=== PATIENT | female | born 1975 | race Caucasian/White ===

== ENCOUNTER 2018-12-03 12:26 | Inpatient (IN) | payer MEDICARE ==
[~2018-12-03] VITALS: Ht 165.1 cm; Wt 76.4 kg
[2018-12-03] MEDS ORDERED: EFFEXOR100 MG PO (12:38)
[2018-12-03] MEDS ORDERED: NEURONTIN 300300 MG PO (12:39)
[2018-12-03] MEDS ORDERED: VITAMIN B-121000 MCG PO (12:39)
[2018-12-03] MEDS ORDERED: VITAMIN D250000 UNIT PO (12:39)
[2018-12-03] MEDS ORDERED: IBUPROFEN600 MG PO (12:39)
[2018-12-03 15:00] LABS: BASOPHILS 0.2 % (0-2); EOSINOPHILS 0.8 % (0-7); HEMATOCRIT 36.9 % (36.0-48.0); HEMOGLOBIN 12.6 g/dL (12-16); IMMATURE GRANULOCYTES 0.3 % (0-5); LYMPHOCYTES 28.1 % (15-50); MCHC 34.1 g/dL (31.0-37.0); MCV 90.9 fL (80.0-100.0); MEAN PLATELET VOLUME 8.8 fL (7.4-10.4); MONOCYTES 9.9 % (2-11); NEUTROPHILS 60.7 % (40-80); PLATELET COUNT 437 10x3/uL (130-400); RBC 4.06 10x6/uL (4.00-5.40); RDW 14.1 % (11.5-14.5); WBC 9.1 10x3/uL (4.8-10.8)
[2018-12-03 15:04] VITALS: BP 162/76
--- NOTE | 2018-12-03 15:06 | NUR ---
PT STABLE, CALL LIGHT WITHIN REACH, DENIES NEEDS, WILL CONTINUE TO MONITOR.
[2018-12-03 15:18] LABS: ALBUMIN 3.6 g/dL (3.4-5.0); ALKALINE PHOSPHATASE 90 U/L (46-116); ALT (SGPT) 18 U/L (10-68); BILIRUBIN - TOTAL 0.32 mg/dL (0.2-1.3); CALC OSMOLALITY 279 mosm/kg (275-300); CALCIUM 8.7 mg/dL (8.5-10.1); CARBON DIOXIDE 27.9 mmol/L (21.0-32.0); CHLORIDE - SERUM 104 mmol/L (98-107); CREATININE - SERUM 0.7 mg/dL (0.6-1.3); GLUCOSE 92 mg/dL (74-106); PROTEIN - SERUM 7.6 g/dL (6.4-8.2); SODIUM 141 mmol/L (136-145); UREA NITROGEN 9 mg/dL (7-18); eGFR NON AFRICAN AMERICAN > 90 mL/min (90-120)
--- NOTE | 2018-12-03 16:24 | NUR ---
PT GONE FOR SCANS AT THIS TIME. PT STABLE AT THIS TIME.
--- NOTE | 2018-12-03 17:16 | NUR ---
PT STABLE, CALL LIGHT WITHIN REACH, DENIES NEEDS, WILL CONTINUE TO MONITOR. PT GOING TO CT AT THIS TIME.
--- NOTE | 2018-12-03 18:10 | NUR ---
PT STABLE, CALL LIGHT WITHIN REACH, ASKING ABOUT DINNER TRAY. WILL CONTINUE TO MONITOR.
[2018-12-03 18:24] VITALS: BP 159/70
--- NOTE | 2018-12-03 18:52 | NUR ---
NURSE COMING ON WILL CALL BACK FOR REPORT.
--- NOTE | 2018-12-03 19:14 | NUR ---
SANDWICH AND DRINK PROVIDED, PT STABLE, CALL LIGHT WITHIN REACH, COLD PACK PROVIDED PER PT REQUEST. WILL CONTINUE TO MONITOR.
[2018-12-03 20:02] VITALS: BP 155/78
--- NOTE | 2018-12-03 20:03 | NUR ---
PT REPORT CALLED TO [facility], NURSE ROOM [id number]. PT STABLE AT THIS TIME.
[2018-12-03 21:28] VITALS: BP 144/66
[2018-12-04 00:29] VITALS: BP 155/59
[2018-12-04 03:03] VITALS: BP 144/66; Ht 165.1 cm; Wt 76.4 kg
--- NOTE | 2018-12-04 03:30 | NUR ---
RIGHT FOREARM IV NO LONGER PATENT. REMOVED CATHETER INTACT. RESITED 22 G TO SUPERIOR RIGHT FOREARM 1ST ATTEMPT. APPLIED HEAT PACKS TO RIGHT FACIAL ABSCESS. STARTING TO DRAIN. JUST RECEIVED GENTAMICIN FROM CLOTH FINISHING RANGE OPERATOR, NOW INFUSING. PERCOCET AND DILAUDID GIVEN ALTERNATELY FOR PAIN. PAIN IS BETTER CONTROLLED NOW. WILL CONTINUE TO MONITOR.
[2018-12-04 05:26] VITALS: BP 147/70
[2018-12-04 06:32] LABS: BASOPHILS 0.2 % (0-2); EOSINOPHILS 0.1 % (0-7); HEMATOCRIT 35.8 % (36.0-48.0); HEMOGLOBIN 12.1 g/dL (12-16); IMMATURE GRANULOCYTES 0.5 % (0-5); LYMPHOCYTES 11.1 % (15-50); MCH 31.1 pg (26.0-34.0); MCHC 33.8 g/dL (31.0-37.0); MEAN PLATELET VOLUME 9.1 fL (7.4-10.4); MONOCYTES 2.4 % (2-11); NEUTROPHILS 85.7 % (40-80); PLATELET COUNT 430 10x3/uL (130-400); RBC 3.89 10x6/uL (4.00-5.40); RDW 14.1 % (11.5-14.5); WBC 8.4 10x3/uL (4.8-10.8)
[2018-12-04 06:47] LABS: CALC OSMOLALITY 277 mosm/kg (275-300); CALCIUM 8.8 mg/dL (8.5-10.1); CHLORIDE - SERUM 102 mmol/L (98-107); CREATININE - SERUM 0.7 mg/dL (0.6-1.3); GLUCOSE 114 mg/dL (74-106); POTASSIUM - SERUM 3.4 mmol/L (3.5-5.1); SODIUM 139 mmol/L (136-145); UREA NITROGEN 9 mg/dL (7-18); eGFR NON AFRICAN AMERICAN > 90 mL/min (90-120)
[2018-12-04 09:09] VITALS: BP 167/82
--- NOTE | 2018-12-04 11:03 | NUR ---
PT ALERT X 4. BREATH SOUNDS CLEAR BILAT. IV TO RIGHT WRIST, PATENT, DRESSING CLEAN DRY AND INTACT. BOWEL SOUNDS HYPOACTIVE TO ALL ELIZALDE. ABSCESS TO RIGHT JAW. PAIN OF 8/10, MEDICATED PER ORDERS, WILL MONITOR. PT TEARFUL AND ANXIOUS. BED LOW, CALL LIGHT IN REACH, NO OTHER NEEDS AT THIS TIME.
[2018-12-04 13:15] VITALS: BP 133/77
[2018-12-04 20:53] VITALS: BP 143/82
[2018-12-05 00:50] VITALS: BP 156/88
[2018-12-05 05:02] VITALS: BP 152/80
[2018-12-05 07:35] LABS: BASOPHILS 0.1 % (0-2); EOSINOPHILS 0 % (0-7); HEMATOCRIT 33.8 % (36.0-48.0); HEMOGLOBIN 11.2 g/dL (12-16); IMMATURE GRANULOCYTES 0.3 % (0-5); MCHC 33.1 g/dL (31.0-37.0); MCV 93.6 fL (80.0-100.0); MONOCYTES 13.5 % (2-11); NEUTROPHILS 68.1 % (40-80); PLATELET COUNT 440 10x3/uL (130-400); RBC 3.61 10x6/uL (4.00-5.40); RDW 14.2 % (11.5-14.5)
[2018-12-05 08:00] VITALS: BP 167/82
[2018-12-05 08:00] LABS: CALCIUM 8.8 mg/dL (8.5-10.1); CARBON DIOXIDE 26.4 mmol/L (21.0-32.0); CHLORIDE - SERUM 103 mmol/L (98-107); CREATININE - SERUM 0.8 mg/dL (0.6-1.3); GLUCOSE 105 mg/dL (74-106); SODIUM 141 mmol/L (136-145); eGFR NON AFRICAN AMERICAN 82 mL/min (90-120)
[2018-12-05 08:04] LABS: CALC OSMOLALITY 280 mosm/kg (275-300); POTASSIUM - SERUM 3.6 mmol/L (3.5-5.1); UREA NITROGEN 13 mg/dL (7-18)
--- NOTE | 2018-12-05 08:22 | NUR ---
PT ALERT X 4. BREATH SOUNDS CLEAR BILAT. IV TO LEFT FOREARM, PATENT, DRESSING CLEAN DRY AND INTACT. EAR AND JAW SLIGHTLY SWOLLEN, OPEN AND DRAINING, PT APPLYING HEAT NEEDED. PAIN OF 4/10, WILL MONITOR. BREAKFAST IN ROOM, BED LOW, CALL LIGHT IN REACH, NO OTHER NEEDS AT THIS TIME.
[2018-12-05 12:00] VITALS: BP 161/96
--- NOTE | 2018-12-05 20:00 | NUR ---
PT DID NOT RECEIVE VANCOMYCIN THAT WAS HUNG AT 181. PT WAS SALINE LOCKED AND IV LEAKED ALL OVER FLOOR. WASTED IN PYXIS AND CREDITED PT. HUNG ANOTHER VANC AT 1999. RETIMING VANC IVPB.
[2018-12-05 21:02] VITALS: BP 176/99
[2018-12-06 00:43] VITALS: BP 167/89
[2018-12-06 05:00] VITALS: BP 112/55
[2018-12-06 05:42] LABS: BASOPHILS 0.3 % (0-2); EOSINOPHILS 1.1 % (0-7); HEMATOCRIT 33.8 % (36.0-48.0); HEMOGLOBIN 11.1 g/dL (12-16); IMMATURE GRANULOCYTES 0.3 % (0-5); MCH 30.7 pg (26.0-34.0); MCHC 32.8 g/dL (31.0-37.0); MCV 93.4 fL (80.0-100.0); MEAN PLATELET VOLUME 8.7 fL (7.4-10.4); MONOCYTES 18.8 % (2-11); NEUTROPHILS 53.5 % (40-80); PLATELET COUNT 414 10x3/uL (130-400); RBC 3.62 10x6/uL (4.00-5.40)
[2018-12-06 05:54] LABS: WBC 7.4 10x3/uL (4.8-10.8)
[2018-12-06 05:57] LABS: ANION GAP 11.7 mmol/L (8-16); CALCIUM 7.5 mg/dL (8.5-10.1); CARBON DIOXIDE 27.2 mmol/L (21.0-32.0); CREATININE - SERUM 0.9 mg/dL (0.6-1.3)
[2018-12-06 06:04] LABS: POTASSIUM - SERUM 2.9 mmol/L (3.5-5.1)
[2018-12-06 08:09] VITALS: BP 128/88
--- NOTE | 2018-12-06 08:21 | NUR ---
AWAKE AND ALERT. ORIENTED X3. C/O PAIN TO RIGHT SIDE OF FACE THIS AM. REPORTS SOME RELIEF WITH PRN MEDS. LUNGS ARE CLEAR BIALTERALLY, NO COUGH NOTED. SKIN IS INTACT WITHOUT REDNESS EXCEPT RIGHT SIDE OF FACE AND CHIN AREA REDDENEED WITH SMALL OPEN AREA TO RIGHT OF MOUTH. IV TO LEFT WRIST AREA PATENT WITHOUT REDNESS AT INSERTION SITE. DENIES NEEDS.
--- NOTE | 2018-12-06 08:57 | NUR ---
REQUESTED AND GIVEN 1MG DILAUDID SLOW IVP FOR C/O FACIAL PAIN LEVEL 8. WILL MONITOR.
[2018-12-06 12:09] VITALS: BP 141/84
[2018-12-06] MEDS ORDERED: CLEOCIN HCL300 MG PO (13:18)
[2018-12-06] MEDS ORDERED: MUPIROCIN22 GM TOPICAL (13:19)
[2018-12-06] MEDS ORDERED: BACTRIM DS1 TAB PO (13:19)
[2018-12-06] MEDS ORDERED: OXYCODONE-APAP1 T10 PO (13:23)
[2018-12-06] MEDS ORDERED: MIRALAX17 GM PO (13:24)
--- NOTE | 2018-12-06 13:41 | MORECARE ---
CASE MANAGEMENT DISCHARGE SUMMARY PATIENT: CHAVA MILLS UNIT: [id number] ADM DATE: 12/03/18 AGE: 43 : 73 SEX: F ROOM/BED: D.2205 AUTHOR: HAILEY MILLER PHYSICIAN: REFERRING PHYSICIAN: JOSHUA VOGEL MD DATE OF SERVICE: 12/06/18 Discharge Plan Patient Name: CHAVA MILLS [facility] [facility] 1975 Planned Disposition: Home Anticipated Discharge Date: Discharge Date: Expected LOS: Initial Reviewer: [email or web address] Initial Review Date: 12/03/2018 Generated: 12/06/18 2:41 pm Patient Name: CHAVA MILLS Page [phone] at 1341 All edits/amendments must be made on the electronic document DICTATION DATE: 12/06/18 1341 DIE STAMPER: YINA 12/06/18 1341 RPT#: [id number] DC DATE: STATUS: ADM IN [facility] [address] [place] [address] END OF REPORT
--- NOTE | 2018-12-06 13:48 | MORECARE ---
CASE MANAGEMENT DISCHARGE SUMMARY PATIENT: CHAVA MILLS UNIT: [id number] ADM DATE: 12/03/18 AGE: 43 : 73 SEX: F ROOM/BED: D.2205 AUTHOR: HAILEY MILLER PHYSICIAN: REFERRING PHYSICIAN: JOSHUA VOGEL MD DATE OF SERVICE: 12/06/18 Discharge Plan Patient Name: CHAVA MILLS Facility: [facility]:[place] : 1975 Planned Disposition: Home Anticipated Discharge Date: Discharge Date: Expected LOS: Initial Reviewer: [id number] Initial Review Date: 12/03/2018 Generated: 12/06/18 2:48 pm Comments DCP- Discharge Planning Updated by [email or web address]: Peyton Joy on 12/06/18 12:[address] Patient Name: CHAVA MILLS Admission Status: ER Accout number: [id number] Admission Date: 12-03-2018 : 1975 Admission Diagnosis: Attending: JOSHUA VOGEL Current LOS: 3 Anticipated DC Date: Planned Disposition: Home Primary Insurance: MEDICARE A & B Discharge Planning Comments: CM MET WITH PATIENT TO ASSESS DSICHARGE PLANNING NEEDS. PATIENT LIVES INDEPENDENTLY AT HOME WITH HER FAMILY AND WILL RETURN THERE TODAY AT DISCHARGE. 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 SHE HAS A CANE THAT SHE USES AT TIMES. SHE STATED THAT HER HOME IS SAFE TO RETURN. IMM SERVED AND EXPLAINED. CM WILL CONTINUE TO FOLLOW AND ASSIST WITH DC PLANNING NEEDS Beater Dumper: Peyton Joy DCPIA - Discharge Planning Initial Assessment Updated by [email or web address]: Peyton Joy on 12/06/18 1:42 pm * Is the patient Alert and Oriented? Yes * How many steps to enter\exit or inside your home? * PCP ANUJA * Pharm[facility] [address] * Preadmission Environment Home with Family * ADLs Independent * Equipment None * List name and contact numbers for known caregivers / representatives who currently or will assist patient after discharge: CRISTINE * Verbal permission to speak to the caregivers and representatives has been obtained from the patient. N/A * Community resources currently utilized None * Additional services required to return to the preadmission environment? No * Can the patient safely return to the preadmission environment? Yes * Has this patient been hospitalized within the prior 30 days at any hospital? No Coverage Notice Reviewer: [email or web address] Rebecca Joy Notice Issued Date-Time: 12/06/2018 13:35 Notice Type: IM Discharge Notice Notice Delivered To: Patient Relationship to Patient: Checker Cashier Name: Delivery Method: HAND - Hand Delivered Charity Days: Prior Verbal Notification: Recipient Understood Notice: Yes Recipient Signature: Yes Med Rec Note Co-signed by Attending: Coverage Notice Comment: Last DP export: 12/06/18 12:41 p Patient Name: CHAVA MILLS Page [phone] at 1348 All edits/amendments must be made on the electronic document DICTATION DATE: 12/06/18 134 DAYCARE MANAGER: YINA 12/06/18 1348 RPT#: [id number] DC DATE: STATUS: ADM IN [facility] [address] [place] [address] END OF REPORT
--- NOTE | 2018-12-06 15:22 | NUR ---
DISCHARGED TO HOME WITH FAMILY AMBULATORY. DISCHARGE INSTRUCTIONS GIVEN BOTH VERBALLY AND WRITTEN. ALL QUESTIONS ANSWERED. PATIENT AND VERBALIZED UNDERSTANDING OF SAME. ALL BELONGINGS WITH PATIENT. NEEDED PRESCRIPTIONS ESCRIBED TO PHARMACY OF CHOICE. GIVEN HARD COPY FOR PERCOCET. SL TO LEFT WRIST D/C WITH CATHETER INTACT.
--- NOTE | 2018-12-07 14:21 | MORECARE ---
CASE MANAGEMENT DISCHARGE SUMMARY PATIENT: CHAVA MILLS UNIT: [id number] ADM DATE: 12/03/18 AGE: 43 : 73 SEX: F ROOM/BED: D.2205 AUTHOR: HAILEY MILLER PHYSICIAN: REFERRING PHYSICIAN: JOSHUA VOGEL MD DATE OF SERVICE: 12/07/18 Discharge Plan Patient Name: CHAVA MILLS Facility: [facility]:[place] : 1975 Planned Disposition: Home Anticipated Discharge Date: Discharge Date: 12/06/2018 Expected LOS: 0 Initial Reviewer: [email or web address] Initial Review Date: 12/03/2018 Generated: 12/07/18 3:20 pm Comments DCP- Discharge Planning Updated by [email or web address]: Peyton Joy on 12/06/18 12:[address] Patient Name: CHAVA MILLS Admission Status: ER Accout number: [id number] Admission Date: 12-03-2018 : 1975 Admission Diagnosis: Attending: JOSHUA VOGEL Current LOS: 3 Anticipated DC Date: Planned Disposition: Home Primary Insurance: MEDICARE A & B Discharge Planning Comments: CM MET WITH PATIENT TO ASSESS DSICHARGE PLANNING NEEDS. PATIENT LIVES INDEPENDENTLY AT HOME WITH HER FAMILY AND WILL RETURN THERE TODAY AT DISCHARGE. HER WILL BE HER PAYROLL COORDINATOR HOME. SHE HAS A CANE THAT SHE USES AT TIMES. SHE STATED THAT HER HOME IS SAFE TO RETURN. IMM SERVED AND EXPLAINED. CM WILL CONTINUE TO FOLLOW AND ASSIST WITH DC PLANNING NEEDS Monument Letterer: Peyton Joy DCPIA - Discharge Planning Initial Assessment Updated by [email or web address]: Peyton Joy on 12/06/18 1:42 pm * Is the patient Alert and Oriented? Yes * How many steps to enter\exit or inside your home? * PCP ANUJA * [facility] [address] * Preadmission Environment Home with Family * ADLs Independent * Equipment None * List name and contact numbers for known caregivers / representatives who currently or will assist patient after discharge: CRISTINE * Verbal permission to speak to the caregivers and representatives has been obtained from the patient. N/A * Community resources currently utilized None * Additional services required to return to the preadmission environment? No * Can the patient safely return to the preadmission environment? Yes * Has this patient been hospitalized within the prior 30 days at any hospital? No Coverage Notice Reviewer: [id number] - Peyton Joy Notice Issued Date-Time: 12/06/2018 13:35 Notice Type: IM Discharge Notice Notice Delivered To: Patient Relationship to Patient: Gas Plant Worker Name: Delivery Method: HAND - Hand Delivered Charity Days: Prior Verbal Notification: Recipient Understood Notice: Yes Recipient Signature: Yes Med Rec Note Co-signed by Attending: Coverage Notice Comment: Last DP export: 12/06/18 12:48 p Patient Name: CHAVA MILLS Page [phone] at 1421 All edits/amendments must be made on the electronic document DICTATION DATE: 12/07/181419 CHIEF STEWARD/STEWARDESS: YINA 12/07/181419 RPT#: [id number] DC DATE:12/06/18 STATUS: DIS IN [facility] [address] [place] [address] END OF REPORT
== END 2018-12-06 15:24 | disposition home or self-care (01) | DRG 603 ==
LOC: D.ER 12:26 → D.MS 17:38 → D.EDHOLD 17:38 → D.MS 17:38
PROVIDERS: Emergency Medicine; Family Medicine; ADMIT Family Medicine
DX: L03.211 Cellulitis of face (principal); B95.62 Methicillin resistant Staphylococcus aureus infection as the cause of diseases classified elsewhere; E87.6 Hypokalemia; F41.9 Anxiety disorder, unspecified; F32.9 Major depressive disorder, single episode, unspecified; M79.7 Fibromyalgia; Z72.0 Tobacco use

== ENCOUNTER 2019-05-30 06:29 | Emergency (ER) | payer MEDICARE ==
[~2019-05-30] VITALS: Ht 165.1 cm; Wt 83.0 kg
[~2019-05-30 06:29] MED LIST: BACTRIM DS1 TAB PO; CLEOCIN HCL300 MG PO; EFFEXOR100 MG PO; IBUPROFEN600 MG PO; MIRALAX17 GM PO; MUPIROCIN22 GM TOPICAL; NEURONTIN 300300 MG PO; OXYCODONE-APAP1 T10 PO; VITAMIN B-121000 MCG PO; VITAMIN D250000 UNIT PO
[2019-05-30 06:36] VITALS: Ht 165.1 cm; Wt 83.0 kg
[2019-05-30 07:10] LABS: BASOPHILS 0.6 % (0-2); EOSINOPHILS 0.4 % (0-7); HEMATOCRIT 39.5 % (36.0-48.0); HEMOGLOBIN 13.7 g/dL (12-16); IMMATURE GRANULOCYTES 0.2 % (0-5); LYMPHOCYTES 25.6 % (15-50); MCH 31.3 pg (26.0-34.0); MCHC 34.7 g/dL (31.0-37.0); MCV 90.2 fL (80.0-100.0); MEAN PLATELET VOLUME 8.8 fL (7.4-10.4); MONOCYTES 10.3 % (2-11); NEUTROPHILS 62.9 % (40-80); PLATELET COUNT 420 10x3/uL (130-400); RBC 4.38 10x6/uL (4.00-5.40); RDW 14.3 % (11.5-14.5); WBC 9.4 10x3/uL (4.8-10.8)
[2019-05-30 07:15] LABS: APPEARANCE CLOUDY (CLEAR); COLOR YELLOW (YELLOW); NITRITE NEGATIVE (NEGATIVE); SPECIFIC GRAVITY 1.015 (1.005-1.020)
[2019-05-30 07:16] LABS: BILIRUBIN NEGATIVE (NEGATIVE); GLUCOSE NEGATIVE (NEGATIVE); KETONE NEGATIVE (NEGATIVE); PROTEIN TRACE mg/dL (NEGATIVE); UROBILINOGEN NORMAL (NORMAL)
[2019-05-30 07:18] LABS: EPITHELIAL CELLS 0-5 /hpf (0-5); WHITE CELLS - URINE 25-50 /hpf (0-5)
[2019-05-30 07:19] LABS: BACTERIA MODERATE /hpf (NONE SEEN)
[2019-05-30 07:24] LABS: UDS - AMPHET NEGATIVE QUAL (NEGATIVE); UDS - BARB NEGATIVE QUAL (NEGATIVE); UDS - BENZO NEGATIVE QUAL (NEGATIVE); UDS - COCAINE NEGATIVE QUAL (NEGATIVE); UDS - OPIATE NEGATIVE QUAL (NEGATIVE); UDS - PCP NEGATIVE QUAL (NEGATIVE); UDS - THC NEGATIVE QUAL (NEGATIVE)
[2019-05-30 07:27] LABS: ALBUMIN 3.8 g/dL (3.4-5.0); ALKALINE PHOSPHATASE 82 U/L (46-116); ALT (SGPT) 28 U/L (10-68); BILIRUBIN - TOTAL 0.27 mg/dL (0.2-1.3); CALC OSMOLALITY 272 mosm/kg (275-300); CALCIUM 8.9 mg/dL (8.5-10.1); CARBON DIOXIDE 28.9 mmol/L (21.0-32.0); CHLORIDE - SERUM 100 mmol/L (98-107); CREATININE - SERUM 0.8 mg/dL (0.6-1.3); GLUCOSE 114 mg/dL (74-106); POTASSIUM - SERUM 3.1 mmol/L (3.5-5.1); PROTEIN - SERUM 7.6 g/dL (6.4-8.2); SODIUM 137 mmol/L (136-145); UREA NITROGEN 6 mg/dL (7-18); eGFR NON AFRICAN AMERICAN 82 mL/min (90-120)
[2019-05-30 07:30] LABS: AMYLASE - SERUM 35 U/L (25-115); LIPASE 161 U/L (73-393); TROPONIN-I < 0.017 ng/mL (0.000-0.060)
[2019-05-30] MEDS ORDERED: CIPRO500 MG PO (08:41)
[2019-05-30 09:04] VITALS: BP 122/64
== END 2019-05-30 09:05 | disposition home or self-care (01) ==
LOC: D.ER 06:29
PROVIDERS: Family Medicine
DX: N39.0 Urinary tract infection, site not specified (principal); E87.6 Hypokalemia

== ENCOUNTER 2019-08-16 16:34 | Emergency (ER) | payer MEDICARE ==
[~2019-08-16] VITALS: Ht 165.1 cm; Wt 87.3 kg
[~2019-08-16 16:34] MED LIST changes: +CIPRO500 MG PO
[2019-08-16 16:37] VITALS: Ht 165.1 cm; Wt 87.3 kg
[2019-08-16 17:08] LABS: BASOPHILS 0.4 % (0-2); EOSINOPHILS 0.4 % (0-7); HEMATOCRIT 36.6 % (36.0-48.0); HEMOGLOBIN 12.8 g/dL (12-16); IMMATURE GRANULOCYTES 0.6 % (0-5); LYMPHOCYTES 37.7 % (15-50); MCV 88.6 fL (80.0-100.0); MEAN PLATELET VOLUME 8.1 fL (7.4-10.4); MONOCYTES 7.5 % (2-11); NEUTROPHILS 53.4 % (40-80); PLATELET COUNT 447 10x3/uL (130-400); RBC 4.13 10x6/uL (4.00-5.40); RDW 15.3 % (11.5-14.5); WBC 7.2 10x3/uL (4.8-10.8)
[2019-08-16 17:15] LABS: ALBUMIN 3.7 g/dL (3.4-5.0); BILIRUBIN - TOTAL 0.2 mg/dL (0.2-1.3); CALCIUM 8.6 mg/dL (8.5-10.1); CARBON DIOXIDE 29.9 mmol/L (21.0-32.0); CREATININE - SERUM 0.9 mg/dL (0.6-1.3); POTASSIUM - SERUM 3.9 mmol/L (3.5-5.1); PROTEIN - SERUM 7.3 g/dL (6.4-8.2)
[2019-08-16 17:22] LABS: APPEARANCE CLEAR (CLEAR); COLOR YELLOW (YELLOW); NITRITE NEGATIVE (NEGATIVE)
[2019-08-16 17:23] LABS: BILIRUBIN NEGATIVE (NEGATIVE); GLUCOSE NEGATIVE (NEGATIVE); KETONE NEGATIVE (NEGATIVE); PROTEIN NEGATIVE (NEGATIVE); UROBILINOGEN NORMAL (NORMAL)
[2019-08-16 17:35] LABS: EPITHELIAL CELLS OCC /hpf (0-5); RED CELLS - URINE 0-5 /hpf (0-5); WHITE CELLS - URINE OCC /hpf (NEGATIVE)
[2019-08-16] MEDS ORDERED: LISINOPRIL10 MG PO (18:13)
[2019-08-16 18:53] VITALS: BP 140/82
== END 2019-08-16 18:54 | disposition home or self-care (01) ==
LOC: D.ER 16:34
PROVIDERS: Family Medicine
DX: I10 Essential (primary) hypertension (principal); I88.9 Nonspecific lymphadenitis, unspecified

== ENCOUNTER 2019-09-01 10:00 | Outpatient (CLI) | payer MEDICARE ==
[2019-08-16 16:37] VITALS: BMI 32.0
[~2019-09-01 10:00] MED LIST changes: +LISINOPRIL10 MG PO
== END 2019-09-01 11:00 | disposition home or self-care (01) ==
LOC: D.MAMMO 10:00
PROVIDERS: ATTEND Student in an Organized Health Care Education/Training Program
DX: N63.11 Unspecified lump in the right breast, upper outer quadrant (principal)

== ENCOUNTER → 2019-09-12 08:18 | Outpatient (CLI) | payer MEDICARE ==
[2019-08-16 16:37] VITALS: BMI 32.0
== END | disposition home or self-care (01) ==
LOC: D.US 08:18
PROVIDERS: ATTEND Student in an Organized Health Care Education/Training Program
DX: R92.8 Other abnormal and inconclusive findings on diagnostic imaging of breast (principal)

== ENCOUNTER → 2019-10-25 09:55 | Outpatient (CLI) | payer MEDICARE ==
[2019-08-16 16:37] VITALS: BMI 32.0
== END | disposition home or self-care (01) ==
LOC: D.US 09:55
PROVIDERS: ATTEND Student in an Organized Health Care Education/Training Program
DX: R92.8 Other abnormal and inconclusive findings on diagnostic imaging of breast (principal)

== ENCOUNTER → 2020-09-11 16:09 | Outpatient (CLI) | payer MEDICARE ==
[2019-08-16 16:37] VITALS: BMI 32.0
== END | disposition home or self-care (01) ==
LOC: D.RAD 16:09
PROVIDERS: ATTEND Nurse Practitioner Family
DX: R05 Cough (principal)